=== PATIENT | female | born 1990 | race Caucasian/White ===

== ENCOUNTER → 2019-02-20 | Outpatient (CLI) | payer OTHER ==
[2019-02-20 07:57] LABS: Basophils # (A) 0.1 k/uL (0-0.2); Basophils % (A) 1 %; Eosinophils # (A) 0.2 k/uL (0-0.7); Eosinophils % (A) 2 %; HCT 42.9 % (34.0-46.0); HGB 14.3 gm/dL (11.4-16.0); Lymphocytes # (A) 2.1 k/uL (1.0-4.8); Lymphocytes % (A) 33 %; MCH 26.5 pg (25.0-35.0); MCHC 33.3 g/dL (31.0-37.0); MCV 79.6 fL (80.0-100.0); Mean Platelet Volume 7.7; Monocytes # (A) 0.2 k/uL (0-1.0); Monocytes % (A) 3 %; Neutrophils # (A) 3.8 k/uL (1.3-7.7); Neutrophils % (A) 59 %; Platelet Count 264 k/uL (150-450); RBC 5.39 m/uL (3.80-5.40); RDW 15.5 % (11.5-15.5); WBC 6.5 k/uL (3.8-10.6)
[2019-02-20 11:33] LABS: African American GFR (CKD) 134.7 (60.0-200.0); Albumin 4.9 g/dL (3.80-4.90); Albumin/Globulin Ratio 2.04 (1.60-3.17); Anion Gap 13.5 mmol/L (4.00-12.00); Calcium 9.9 mg/dL (8.7-10.3); Carbon Dioxide 25.5 mmol/L (21.6-31.8); Chol/HDL Ratio 3.89; Globulin 2.4 g/dL (1.6-3.3); Potassium 4.7 mmol/L (3.5-5.5); Total Bilirubin 0.3 mg/dL (0.3-1.2); Total Protein 7.3 g/dL (6.2-8.2)
== END | disposition home or self-care (01) ==
LOC: LABWHC1 06:55
PROVIDERS: ATTEND Nurse Practitioner Family
DX: Z13.1 Encounter for screening for diabetes mellitus (principal); Z13.6 Encounter for screening for cardiovascular disorders
CPT/HCPCS: 36415; 80053; 80061; 85025

== ENCOUNTER → 2021-08-08 | Outpatient (CLI) | payer OTHER ==
--- NOTE | 2021-08-08 15:52 | US ---
EXAMINATION TYPE: US transvaginal DATE OF EXAM: 08/08/2021 COMPARISON: NONE CLINICAL HISTORY: Q51.3 Bicornate uterus. Irregular menstrual cycles per patient; G0 TECHNIQUE: Transvaginal (TV) . Transvaginal sonographic images were medically necessary to better a ssess the following anatomy: endometrium. Date of LMP: 08/06/2021 EXAM MEASUREMENTS: Uterus: 8.4 x 6.2 x 3.9 cm Endometrial Stripe: 0.7 cm Right Ovary: 3.5 x 2.7 x 2.4 cm Left Ovary: 3.6 x 2.4 x 2.0 cm 1. Uterus: Anteverted; multiple small Nabothian Cysts seen in cervix with largest = 0.3 x 0.3 x 0.2c m 2. Endometrium: thickness is wnl for Day 2 LMP; very diminished bicornuate appearance to upper endom etrium 3. Right Ovary: multiple follicles with largest follicular cyst = 0.6 x 0.9 x 0.6cm. 4. Left Ovary: multiple small follicles 5. Bilateral Adnexa: wnl 6. Posterior cul-de-sac: small amount of free fluid is noted = 1.4 x 1.2 x 0.7cm. IMPRESSION: Bilateral follicular cysts. Possible bicornuate uterus. Small amount of free fluid.
== END | disposition home or self-care (01) ==
LOC: RADUSWWP 14:51
PROVIDERS: ATTEND Family Medicine
DX: Q51.3 Bicornate uterus (principal); N83.02 Follicular cyst of left ovary; N83.01 Follicular cyst of right ovary
CPT/HCPCS: 76830

== ENCOUNTER → 2024-03-10 | Outpatient (CLI) | payer OTHER ==
--- NOTE | 2024-03-10 08:51 | USB ---
Reason for Exam: Clinical finding. Patient History: Menarche at age 10. Patient has no children. Premenopausal. Risk Values: Alisa 5 year model risk: 0.3%. NCI Lifetime model risk: 11.3%. Technique: Method: Targeted. Findings: The upper outer quadrant of the right breast, the lower inner quadrant of the left breast, the axilla of both breasts and the retroareolar of both breasts were scanned. Right breast demonstrates cysts collection. The 10:00 position 9 cm from the nipple measuring 1.1 cm maximal dimension. The left breast demonstrates suspicious cluster at the left 6:00 position 5 cm from the nipple measuring 1.1 x 0.5 cm. No solid masses seen within either breast. Overall Assessment: Benign, BI-RAD 2 Management: Screening Mammogram of both breasts at age 38. A clinical breast exam by your physician is recommended on an annual basis and results should be correlated with mammographic findings. This exam should not preclude additional follow-up of suspicious palpable abnormalities. Results were given to the patient verbally at the time of exam. [facility], , 03/10/2024 8:48 AM. Electronically signed and approved by: Caden Bhakta M.D. Radiologis
--- NOTE | 2024-03-14 08:28 | MM ---
Reason for Exam: Clinical finding. Baseline mammogram. Indicated Problems: Lump or thickening of both sides. Patient History: Menarche at age 10. Patient has no children. Premenopausal. Risk Values: Alisa 5 year model risk: 0.3%. NCI Lifetime model risk: 11.3%. Prior Study Comparison: Patient's first Mammogram. Tissue Density: The breasts are heterogeneously dense, which may obscure small masses. Findings: Analyzed By CAD. Nodularity upper outer quadrant right breast requires further evaluation with ultrasound. Nodular density lower inner left breast 5 cm from the nipple measuring 1 cm. Ultrasound recommended. No suspicious mitral calcifications present. Overall Assessment: Incomplete: need additional imaging evaluation, BI-RAD 0 Management: Diagnostic Breast Ultrasound of both breasts. . Results were given to the patient verbally at the time of exam. Patient should continue monthly self-breast exams. A clinical breast exam by your physician is recommended on an annual basis. This exam should not preclude additional follow-up of suspicious palpable abnormalities. Note on Alisa scores and lifetime risk: 1. A Alisa score greater than 3% is considered moderate risk. If this is the case, consider specialist referral to assess eligibility for a risk reducing agent. 2. If overall lifetime risk for the development of breast cancer is 20% or higher, the patient may qualify for future screening with alternating mammogram and breast MRI. [facility], , 03/10/2024 8:24 AM. Electronically signed and approved by: Caden Bhakta M.D. Radiologis
== END | disposition home or self-care (01) ==
LOC: RADMAMWWP 07:51
PROVIDERS: ATTEND Family Medicine
DX: R92.333 Mammographic heterogeneous density, bilateral breasts (principal); N63.14 Unspecified lump in the right breast, lower inner quadrant; N63.23 Unspecified lump in the left breast, lower outer quadrant
CPT/HCPCS: 77062; 77066